=== PATIENT | female | born 1955 | race Caucasian/White ===

== ENCOUNTER → 2016-08-21 | Outpatient (CLI) | payer BC ==
[~2016-08-21] MED LIST: ALDACTONE PO; ALDACTONE100 MG PO; B-1100 MG PO; CHRONULAC10 GM/15 M PO; CIPRO PO; FUROSEMIDE40 MG PO; IPRAT-ALBUT 0.5-3 ML INH; KCL PO; KLOR-CON PO; L-CARNITINE500 MG PO; LASIX PO; LASIX20 MG PO; LEXAPRO20 MG PO; LOMOTIL WHITE2.5 M1 PO; LORAZEPAM1 MG PO; MULTI VITAMIN1 EACH PO; MULTI-DAY1 TAB PO; NEURONTIN600 MG PO; OMEPRAZOLE20 M2 PO; OMEPRAZOLE40 M1 PO; OXYCODONE HCL5 MG PO; PHENERGAN12.5 MG PO; PRO-AMATINE5 M1 PO; ROXICODONE5 MG PO; SANDOSTATI200 MCG/ML INJ; THIAMINE HCL100 M1 PO; THIAMINE HCL100 MG PO; TRAMADOL HCL50 M1 PO; TYLENOL325 M1 PO; XIFAXAN550 MG PO; ZEGERID40 MG/PKT PO; ZINC50 M1 PO
--- NOTE | ~2016-08-21 | MR165 ---
[facility] A Service of [facility] & [facility] RADIOLOGY TEXT RESULTS PATIENT: TERRENCE DELGADILLO LOCATION: CM[facility] : 59 UNIT #: [id number] AGE: [address]: Heath Coombs MD SEX: F ORDER DR: [id number] [facility] [address] [facility]. [place], [place] [address] [id number] O MR#: [id number] Acc #: [id number] NAME: TERRENCE DELGADILLO : 1955 SEX: F STUDY DATE/TIME: 08/21/2016 15:57 UNIT: [facility] ROOM: STUDY DESCRIPTION: MR Shoulder Wo Contrast Rt Attending Physician: Heath Coombs M.D. Referring Physician: Heath Coombs M.D. Ordering Physician: Heath Coombs M.D. Primary Care Physician: Logan Romero M.D. MRI CENTER REPORT This report is preliminary unless electronic signature is present. EXAM MRI of the right shoulder, 08/21/2016 COMPARISON Right shoulder radiographs, 07/10/2016 HISTORY Order states right shoulder pain, weakness, evaluate for rotator cuff tear. History sheet states pain for 5 years. Hurts to lift. Weakness, progressively worse. No known injury and no surgery. History of cirrhosis of the liver and kidney failure. FINDINGS There is mild hypertrophic AC joint arthrosis with mild capsuloligamentous thickening and osteophyte formation. Tiny subarticular cysts of the clavicle are noted. Small amount of fluid or synovitis is noted within the AC joint. Coracoacromial and coracoclavicular ligaments are intact. There is a small ossification anterior to the acromion probably enthesopathic related to the coracoacromial ligament insertion. There is a massive rotator cuff tear with full-thickness, full-width chronic-appearing tears/detachment of both supraspinatus and infraspinatus tendons. Tendons are significantly retracted medial to the glenoid (1.0-2.0 cm). There is secondary superior humeral migration of fluid in the subacromial-subdeltoid bursa. There is moderate marrow edema in the acromion likely due to humeral-acromial abutment. The retracted infraspinatus and supraspinatus muscles are moderately atrophic. There is high-grade articular sided tear of the subscapularis tendon involving its central third without full-thickness tear or detachment. Tear is greater than 75% in tendon thickness but only involves the middle third component. The teres minor tendon is intact. There is moderate atrophy of the cranial half of the subscapularis muscle. [facility]. [facility] A Service of [facility] RADIOLOGY TEXT RESULTS PATIENT: TERRENCE DELGADILLO LOCATION: [facility] : 57 UNIT #: [id number] AGE: [address]: Heath Coombs MD SEX: F ORDER DR: There is medial dislocation of the long head biceps tendon which is flattened and attenuated as it courses through the anterior interval suggesting chronic tendinosis or partial tear. There is no full-thickness tear or detachment. The labrum is unremarkable. Glenohumeral joint demonstrates a moderate slightly complex signal effusion suggestive of synovitis. There is high-grade cartilage loss of the superior humeral head and at least low grade chondromalacia the central glenoid. No sizeable loose bodies are noted. There is no marrow lesion or fracture. IMPRESSION 1. The predominant abnormality is a chronic-appearing massive rotator cuff tear with full-thickness, full-width supraspinatus and infraspinatus tendon tears with significant retraction and moderate muscle atrophy. 2. Partial articular sided central third subscapularis tear with partial muscle atrophy detailed above. 3. Superior humeral migration, subacromial-subdeltoid bursitis, and acromial marrow edema likely due to humeral-acromial abutment secondary to the large rotator cuff tear. 4. Mild acromioclavicular joint arthrosis. 5. Glenohumeral chondromalacia detailed above with a joint effusion and subtle synovitis. 6. Medial dislocation of the long head biceps tendon which is attenuated and tendinopathic in its anterior interval segment raising the possibility of partial longitudinal tear. Dictated by... Ayesha Joe M.D. THIS IS AN ELECTRONICALLY VERIFIED REPORT Ayesha Joe M.D. at 08/22/2016 11:30 AM Benjy TD: 08/22/2016 09:18 JOB #: [id number] MRI CENTER REPORT Page 1 of 1 COPY
== END | disposition home or self-care (01) ==
LOC: CMRI 14:38
DX: M25.511 Pain in right shoulder (principal); M75.101 Unspecified rotator cuff tear or rupture of right shoulder, not specified as traumatic; M75.51 Bursitis of right shoulder; M94.211 Chondromalacia, right shoulder; M65.811 Other synovitis and tenosynovitis, right shoulder; R53.1 Weakness
CPT/HCPCS: 73221

== ENCOUNTER → 2016-09-09 | Outpatient (CLI) | payer BC ==
--- NOTE | ~2016-09-09 | US85 ---
[facility] A Service of [facility] & [facility] RADIOLOGY TEXT RESULTS PATIENT: TERRENCE DELGADILLO LOCATION: [facility] : 59 UNIT #: [id number] AGE: [address]: SUZETTE FALK PA-C SEX: F ORDER DR: [id number] [facility] [address] [place], [place] [address] [id number] O MR#: [id number] Acc #: [id number] NAME: TERRENCE DELGADILLO : 1955 SEX: F STUDY DATE/TIME: 09/09/2016 15:59 UNIT: CNIV ROOM: STUDY DESCRIPTION: [facility] Attending Physician: Suzette Falk Referring Physician: Suzette Falk Ordering Physician: Logan Romero M.D. Primary Care Physician: Logan Romero M.D. MEDICAL IMAGING REPORT This report is preliminary unless electronic signature is present EXAM Right lower extremity venous duplex ultrasound 09/09/2016 HISTORY 61-year-old female with right lower extremity pain and swelling for 1 month. COMPARISON None. FINDINGS Real-time chao-scale, color Doppler, and spectral Doppler analysis of the right lower extremity deep venous system demonstrates normal venous waveforms with normal compressibility and augmentation throughout. No evidence of right lower extremity deep venous thrombosis. IMPRESSION Negative for right lower extremity DVT. Dictated by... Stuart Lynch M.D. THIS IS AN ELECTRONICALLY VERIFIED REPORT Stuart Lynch M.D. at 09/10/2016 2:30 PM ANUJA/nestor TD: 09/10/2016 12:52 JOB #: [id number] MEDICAL IMAGING REPORT Page 1 of 1 COPY
== END | disposition home or self-care (01) ==
LOC: CNIV 15:33
DX: M79.89 Other specified soft tissue disorders (principal); M79.661 Pain in right lower leg
CPT/HCPCS: 93971

== ENCOUNTER → 2016-09-11 | Outpatient (CLI) | payer BC ==
--- NOTE | ~2016-09-11 | EKG ---
PATIENT: TERRENCE DELGADILLO UNIT #: [id number] Ventricular Rate: 74 BPM Atrial Rate: 74 BPM P-R Interval: 118 ms QRS Duration: 82 ms Q-T Interval: 412 ms QTC Calculation(Bezet): 457 ms P Rodeo: 11 degrees Calculated R Rodeo: -3 degrees Calculated T Rodeo: 10 degrees Diagnosis Line: Normal sinus rhythm Diagnosis Line: Normal ECG Diagnosis Line: No previous ECGs available Diagnosis Line: Confirmed by CONY MARRERO MD ([id number]) on 09/12/2016 Diagnosis Line: 6:37:41 PM INTERPRETING MD: JANES VELASCO
[2016-09-11 14:55] LABS: HEMATOCRIT 33.1 % (35.0-45.0); HEMOGLOBIN 10.2 gm/dL (12.0-16.0); MEAN CELL VOLUME 73.1 FL (83-96); MEAN CORPUSCULAR HEMOGLOBIN 22.5 PG (28-34); MEAN CORPUSCULAR HGB CONC 30.8 g/dL (30-36); MEAN PLATELET VOLUME 8.1 FL (6.5-11.5); RED BLOOD COUNT 4.53 X10e (3.90-5.30); RED CELL DISTRIBUTION WIDTH 19.2 % (11.0-15.5); WHITE BLOOD COUNT 6.4 X10e3 (4.0-10.5)
[2016-09-11 14:57] LABS: URINE APPEARANCE CLEAR; URINE BILIRUBIN NEG (NEG); URINE BLOOD NEG (NEG); URINE COLOR YELLOW; URINE GLUCOSE NEG (NEG); URINE KETONE NEG (NEG); URINE LEUKOCYTE ESTERASE NEG (NEG); URINE NITRATE NEG (NEG); URINE PROTEIN NEG (NEG); URINE SPECIFIC GRAVITY 1.006 (1.003-1.035); URINE UROBILINOGEN 0.2 MG/DL (NEG)
[2016-09-11 15:05] LABS: CULTURE INDICATED? NO; URINE SOURCE CLEAN CATCH
[2016-09-11 15:24] LABS: ALBUMIN SERUM 3.5 g/dL (3.5-5.0); BILIRUBIN,TOTAL 1.9 mg/dL (0.2-2.0); CALCIUM SERUM 9.4 mg/dL (8.4-10.2); CREATININE SERUM 0.5 mg/dL (0.6-1.4); POTASSIUM 4.1 mmol/L (3.5-5.1)
== END | disposition home or self-care (01) ==
LOC: CAMB 13:51
PROVIDERS: Orthopaedic Surgery
DX: Z01.818 Encounter for other preprocedural examination (principal); M75.101 Unspecified rotator cuff tear or rupture of right shoulder, not specified as traumatic
CPT/HCPCS: 36415; 80053; 81003; 85027; 87070; 93005

== ENCOUNTER 2016-09-25 05:58 | Inpatient (IN) | payer BC ==
--- NOTE | ~2016-09-25 | CR230 ---
[facility] A Service of [facility] RADIOLOGY TEXT RESULTS PATIENT: TERRENCE DELGADILLO LOCATION: [facility] 453-01 : 59 UNIT #: [id number] AGE: [address]: Heath Coombs MD SEX: F ORDER DR: [id number] [id number] [facility]. [place], [place] [address] [id number] I MR#: [id number] Acc #: [id number] NAME: TERRENCE DELGADILLO : 1955 SEX: F STUDY DATE/TIME: 09/25/2016 10:07 UNIT: [facility] ROOM: [facility] STUDY DESCRIPTION: CR Shoulder Min 2 View Rt Attending Physician: Heath Coombs M.D. Referring Physician: Logan Romero M.D. Ordering Physician: Heath Coombs M.D. Primary Care Physician: Lgoan Romero M.D. MEDICAL IMAGING REPORT This report is preliminary unless electronic signature is present EXAM 2 views of the right shoulder DATE 09/25/2016 HISTORY Postop right shoulder replacement today. COMPARISON Right shoulder radiographs 07/10/2016. FINDINGS Surgical changes of total right shoulder replacement. No periprosthetic fracture. The prosthetic joint appears appropriately aligned. Mild degenerative spurring of the AC joint. No AC or CC separation. Generalized osteopenia. Incidental note is made [id number] cervical facet arthropathy. Imaged right lung appears clear. The expected degree of postoperative subcutaneous air, and a surgical drain is in place. IMPRESSION Satisfactory postop appearance status post right shoulder replacement. Dictated by... Paz Daily M.D. THIS IS AN ELECTRONICALLY VERIFIED REPORT Paz Daily M.D. at 09/26/2016 8:35 AM LLH/to TD: 09/25/2016 12:36 JOB #: [id number] [facility] A Service of [facility] RADIOLOGY TEXT RESULTS PATIENT: TERRENCE DELGADILLO LOCATION: [facility] 453-01 : 59 UNIT #: [id number] AGE: [address]: Heath Coombs MD SEX: F ORDER DR: MEDICAL IMAGING REPORT Page 1 of 1 COPY
--- NOTE | ~2016-09-25 | OR ---
Unit #: [id number] #: [id number] Patient: TERRENCE HUGGINS [id number] [address] [id number] I MR#: [id number] NAME: TERRENCE HUGGINS. ROOM: 453 Date of Procedure: 09/25/2016 Admission Date: 09/25/2016 Surgeon: Heath Coombs M.D. : 1955 Attending Physician: Heath Coombs M.D. Referring Physician: Logan Romero M.D. Primary Care Physician: Logan Romero M.D. OPERATIVE REPORT PREOPERATIVE DIAGNOSIS Right shoulder cuff tear arthropathy. POSTOPERATIVE DIAGNOSES 1. Right shoulder cuff tear arthropathy. 2. Right shoulder long head biceps tendon tear. PROCEDURES PERFORMED 1. Right reverse shoulder arthroplasty. 2. Right shoulder biceps tenodesis. IMPLANTS 1. DJO surgical size 10 press-fit AltiVate humeral stem with a 32, neutral liner. 2. DJO Surgical P2 baseplate with a 32, -4 glenosphere. ATHLETIC COORDINATOR Dana Shoemaker APRN, [employer]. ANESTHESIA General with interscalene nerve block. ESTIMATED BLOOD LOSS 150 mL. DRAINS Medium Hemovac x1. SPECIMENS Humeral head to Pathology. COMPLICATIONS None apparent. INDICATIONS FOR PROCEDURE Ms. Huggins is a 61-year-old female with a history of massive irreparable right rotator cuff tear and development of early arthropathy. She has failed conservative management, now elected to proceed with a right reverse shoulder arthroplasty. DESCRIPTION OF PROCEDURE The patient was identified in the preoperative holding area. The Unit #: [id number] #: [id number] Patient: TERRENCE HUGGINS operative site was marked. A regional anesthetic block was performed. Preoperative antibiotics were administered. The patient was then brought to the operating room and placed supine on the operating table. A general anesthetic was induced. The patient was positioned in the beach-chair position. The right upper extremity was then prepped and draped in sterile fashion. A standard deltopectoral incision was performed. Dissection was carried down to the deltopectoral interval itself. The cephalic vein was mobilized medially with the pectoralis major muscle. The subdeltoid space was developed. Dissection was carried down to the conjoined tendon. The conjoined tendon was identified and the 3 sisters identified and coagulated with Aquamantys electrocautery. The biceps tendon sheath was opened up into the glenohumeral joint. The biceps tendon was frayed and torn, but intact. There was significant proliferative tenosynovitis along the biceps tendon itself. The biceps was then tenodesed to the superior border of the pectoralis major tendon with #2 FiberWire in a locking Krackow stitch fashion. The biceps was then released and then the proximal portion excised. There was a small amount of fibrous tissue present over the greater tuberosity, which was some pseudocapsular type tissue. This was removed and the underlying tuberosity was noted to be bare with a massive cuff tear. The shoulder was then dislocated anteriorly. Osteophytes were removed circumferentially from around the inferior aspect of the humeral head. The extramedullary cutting guide was then secured and the humeral head osteotomy performed in 30 degrees of retroversion. The humeral head was then subluxed posteriorly. A circumferential labral release was performed. The inferior capsule was released off the inferior glenoid. Axillary nerve was protected throughout the release. The centering hole was then drilled followed by insertion of the reaming tap. We reamed with a starter and small reamers. The baseplate was then inserted and achieved solid purchase in the scapula. We then placed 4 peripheral locking screws. Superiorly, this was an 18 followed by 26 inferiorly. The anterior and posterior screws were 14 mm each. The real 32, -4 glenosphere was then impacted in place. The set screw was secured. Attention was turned back to the humerus. The humerus was reamed and then the canal sounded up to a size 10 hand i thermal cutter. We opened a size 10 implant and impacted this in place and achieved solid press-fit. We then trialed and selected a 32 neutral humeral socket liner. The real liner was impacted in place. The shoulder was reduced and taken through range of motion. The shoulder was stable with good tension. The shoulder was washed with a dilute Betadine solution followed by pulsatile lavage. The wound was then closed in a layered fashion with 0 Vicryl, 2-0 Vicryl, and running Monocryl in the skin. Steri-Strips and sterile dressings were applied. DISPOSITION Stable to recovery room. Dictated by... Abebe Salmeron/faraz TD: 09/26/2016 03:48 Unit #: [id number] #: [id number] Patient: TERRENCE HUGGINS JOB #: [id number] OPERATIVE REPORT Page 1 of 1 X Heath Coombs MD X PROCEDURE OPERATIVE NOTE
--- NOTE | ~2016-09-25 | DS ---
Unit #: [id number] #: [id number] Patient: TERRENCE DELGADILLO [id number] [address] [address] [id number] I MR#: [id number] NAME: TERRENCE DELGADILLO ROOM: 453 Age: 61 Sex: F Admission Date: 09/25/2016 : 1955 Discharge Date: 09/28/2016 Attending Physician: Heath Coombs M.D. Referring Physician: Logan Romero M.D. Primary Care Physician: Logan Romero M.D. DISCHARGE SUMMARY ADMISSION DIAGNOSIS Right shoulder cuff tear arthropathy. DISCHARGE DIAGNOSIS Right shoulder cuff tear arthropathy. SECONDARY DIAGNOSES 1. Cirrhosis with history of liver failure. 2. Depressive/anxiety disorder. 3. Gastroesophageal reflux disease. 4. Hypokalemia. 5. Hypertension. PROCEDURES THIS HOSPITALIZATION Right reverse shoulder arthroplasty. ADMISSION HISTORY Ms. Delgadillo is a 61-year-old female with a history of right shoulder pain and early cuff tear arthropathy. She has failed conservative treatment. She now presents for definitive management with reverse shoulder arthroplasty. HOSPITAL COURSE The patient was taken to the operating room on the day of admission on 09/25/2016. She underwent a right reverse shoulder arthroplasty. She did well intraoperatively. For full detail please see dictated operative note. Patient was admitted to a private room on the orthopedic surgery floor. Postsurgical course has been largely unremarkable. Her hemoglobin was initially 7.8 on postoperative day #1 and recheck it was 7.7. On postoperative day #2 was 6.9. At that point a decision was made to transfuse her with two units of packed red blood cells. She remained in-house following the blood transfusion. On postop day #3, a repeat check demonstrated hemoglobin at 9.6 following her transfusion and 9.4 on the date of discharge. Her pain has been well controlled. She has been up and ambulatory with physical therapy. She is demonstrating compliance with her sling and immobilization precautions. She has resumed a regular diet. At that time current time she is medically stable for discharge home. DISCHARGE MEDICATIONS 1. Lactulose 20 g p.o. t.i.d. Unit #: [id number] #: [id number] Patient: TERRENCE DELGADILLO 2. Neurontin 600 mg p.o. b.i.d. 3. Lexapro 20 mg p.o. q.h.s. 4. Lasix 40 mg p.o. daily. 5. Aldactone 100 mg p.o. daily. 6. Omeprazole 20 mg p.o. daily. 7. Klor-Con 10 mEq p.o. daily. 8. Oxycodone 5 mg 1-2 tabs p.o. q.4 hours p.r.n. pain. FOLLOWUP Followup in two weeks time. Dictated by... Heath Coombs M.D. TROY/bettina TD: 09/29/2016 12:37 JOB #: [id number] DISCHARGE SUMMARY Page 1 of 1 X Heath Coombs MD X DISCHARGE SUMMARY
[2016-09-26 04:44] LABS: HEMATOCRIT 24.8 % (35.0-45.0); HEMOGLOBIN 7.8 gm/dL (12.0-16.0); MEAN CELL VOLUME 70.5 FL (83-96); MEAN CORPUSCULAR HEMOGLOBIN 22.2 PG (28-34); MEAN CORPUSCULAR HGB CONC 31.4 g/dL (30-36); MEAN PLATELET VOLUME 8.1 FL (6.5-11.5); RED BLOOD COUNT 3.52 X10e (3.90-5.30); RED CELL DISTRIBUTION WIDTH 19.6 % (11.0-15.5); WHITE BLOOD COUNT 15.2 X10e3 (4.0-10.5)
[2016-09-26 16:28] LABS: BASOPHIL# 0.1 X10e3 (0-0.3); BASOPHIL% 0.5 % (0-2.5); EOSINOPHIL# 0.1 X10e3 (0-0.7); EOSINOPHIL% 0.8 % (0.0-7.0); HEMATOCRIT 25.1 % (35.0-45.0); HEMOGLOBIN 7.7 gm/dL (12.0-16.0); LYMPHOCYTE# 2.3 X10e3 (1.0-3.5); LYMPHOCYTE% 13.1 % (17.0-45.0); MEAN CELL VOLUME 72.9 FL (83-96); MEAN CORPUSCULAR HEMOGLOBIN 22.4 PG (28-34); MEAN CORPUSCULAR HGB CONC 30.7 g/dL (30-36); MEAN PLATELET VOLUME 8.2 FL (6.5-11.5); MONOCYTE# 2.4 X10e3 (0-1.0); MONOCYTE% 14.1 % (3.0-12.0); NEUTROPHIL# 12.3 X10e3 (1.5-7.1); NEUTROPHIL% 71.5 % (40-75); PLATELET COUNT 113 X10e3 (140-420); RED BLOOD COUNT 3.44 X10e (3.90-5.30); RED CELL DISTRIBUTION WIDTH 19.7 % (11.0-15.5); WHITE BLOOD COUNT 17.2 X10e3 (4.0-10.5)
[2016-09-26 16:29] LABS: DIFF IND YES
[2016-09-26 16:45] LABS: PLATELET ESTIMATE DECREASED (NORMAL)
[2016-09-27 03:46] LABS: HEMATOCRIT 22.1 % (35.0-45.0); MEAN CELL VOLUME 71.9 FL (83-96); MEAN CORPUSCULAR HEMOGLOBIN 22.4 PG (28-34); MEAN CORPUSCULAR HGB CONC 31.2 g/dL (30-36); MEAN PLATELET VOLUME 8.4 FL (6.5-11.5); RED BLOOD COUNT 3.08 X10e (3.90-5.30); RED CELL DISTRIBUTION WIDTH 19.2 % (11.0-15.5); WHITE BLOOD COUNT 12.8 X10e3 (4.0-10.5)
[2016-09-27 03:51] LABS: HEMOGLOBIN 6.9 gm/dL (12.0-16.0)
[2016-09-27 23:09] LABS: HEMATOCRIT 30.3 % (35.0-45.0)
[2016-09-27 23:20] LABS: HEMOGLOBIN 9.6 gm/dL (12.0-16.0)
[2016-09-28 03:55] LABS: HEMATOCRIT 29.5 % (35.0-45.0); HEMOGLOBIN 9.4 gm/dL (12.0-16.0); MEAN CELL VOLUME 74.8 FL (83-96); MEAN PLATELET VOLUME 8.6 FL (6.5-11.5); RED BLOOD COUNT 3.94 X10e (3.90-5.30); RED CELL DISTRIBUTION WIDTH 20.5 % (11.0-15.5); WHITE BLOOD COUNT 11.6 X10e3 (4.0-10.5)
[2016-09-28] MEDS ORDERED: ROXICODONE5 MG PO (14:59)
== END 2016-09-28 17:37 | disposition home or self-care (01) | DRG 483 ==
LOC: CSUR 05:58 → CPACUOF 07:00 → C4B 07:00 → CSUR 07:30 → CPACUOF 09:25 → C4B 11:42 → CPACUOF 11:42 → C4B 09-28 17:37
PROVIDERS: Nurse Practitioner; Orthopaedic Surgery
PROC: 0RRJ00Z Replacement of Right Shoulder Joint with Reverse Ball and Socket Synthetic Substitute, Open Approach (ICD-10-PCS; principal; 2016-09-25 07:30)
PROC: 30233N1 Transfusion of Nonautologous Red Blood Cells into Peripheral Vein, Percutaneous Approach (ICD-10-PCS; 2016-09-27)
DX: M75.101 Unspecified rotator cuff tear or rupture of right shoulder, not specified as traumatic (principal); D62 Acute posthemorrhagic anemia; K70.30 Alcoholic cirrhosis of liver without ascites; F41.9 Anxiety disorder, unspecified; F32.9 Major depressive disorder, single episode, unspecified; K21.9 Gastro-esophageal reflux disease without esophagitis; I10 Essential (primary) hypertension; E87.6 Hypokalemia; S46.011A Strain of muscle(s) and tendon(s) of the rotator cuff of right shoulder, initial encounter; F10.10 Alcohol abuse, uncomplicated
CPT/HCPCS: 73030; 85014; 85018; 85025; 85027; 86850; 86900; 86901; 86923; 94760; 97110; 97116; 97161; 97530; C1713; C1776; J0131; J0330; J0690; J2250; J2270; J2710; J2795; J3010; P9016